=== PATIENT | female | born 1995 | race Two or more races ===

== ENCOUNTER 2024-07-28 15:39 | Emergency (ER) | payer SELFPAY ==
[2024-07-28] MEDS: Lidocaine 2% Viscous Solution 15 ML UD PO ONE (18:56)
[2024-07-28] MEDS: Benzocaine 20% Topical Spray UD MUCMEM ONE (18:56)
[2024-07-28] MEDS: Amoxicillin/Clavulanate K 875-125 MG Tab PO ONE (18:57)
== END 2024-07-28 18:59 | disposition home or self-care (01) ==
LOC: MW.ED 15:39
DX: K08.89 Other specified disorders of teeth and supporting structures (principal); F17.210 Nicotine dependence, cigarettes, uncomplicated; Z79.899 Other long term (current) drug therapy; Z75.8 Other problems related to medical facilities and other health care
CPT/HCPCS: 99282; A9270